=== PATIENT | female | born 1945 | race Caucasian/White ===

== ENCOUNTER 2017-02-26 13:20 | Emergency (ER) | payer MEDICARE, OTHER ==
[~2017-02-26 13:20] MED LIST: ACETAMINOPHEN325 M1 PO; ASPIR 8181 M1 PO; CENTRUM SILVER1 EAC3 PO; CENTRUM SILVER1 TA PO; CEPHALEXIN500 M1 PO; FLAX OIL1000 MG PO; FLAXSEED OIL1000 MG; FLOMAX0.4 MG PO; GLUCOSAMINE & C1 CAP PO; GLUCOSAMINE CH1 EA10 PO; GLUCOSAMINE CH1 EAC2 PO; GLUCOSAMINE/CHO1 TAB; IMODIUM2 MG PO; LIPITOR10 M1 PO; LIPITOR10 MG; LIPITOR10 MG PO; METOPROLOL SUCC25 M1 PO; METOPROLOL TART50 MG PO; METOPXL25 PO; MULTIVITAMIN1 TAB; MULTIVITAMIN1 TAB PO; NORCO 5/325 TAB1 TAB PO; OMEPRAZOLE20 M3 PO; PLAVIX75 M1 PO; PROBIOTIC1 EA10 PO; PROBIOTIC1 EAC4 PO; SKELAXIN800 MG PO; VERAPAMIL HCL PO; VERAPAMIL HCL240 M; ZOFRAN8 MG PO
[2017-02-26] MEDS ORDERED: OMEPRAZOLE20 M3 PO (13:36)
[2017-02-26 14:01] LABS: BASO % 0.5 % (0-2); EOS % 0.8 % (0-7); EOSINOPHIL ABSOLUTE COUNT 0.1 tho/cmm (0.0-0.7); HCT-HEMATOCRIT 40.2 % (34.0-49.0); HGB-HEMOGLOBIN 14.4 gm/dl (12.0-15.5); IMMATURE GRANULOCYTES ABSOLUTE 0.02 tho/cmm (0-0.03); IMMATURE GRANULOCYTES PERCENT 0.2 % (0-0.3); LYMPH % 37.7 % (20-45); LYMPH ABSOLUTE COUNT 3.1 tho/cmm (0.8-4.5); MCH (MEAN CORPUSCULAR HGB) 30.3 pg (28.0-32.0); MCHC MEAN CORPUSCULAR HGB CONC 35.8 % (32.0-36.0); MCV (MEAN CELL VOLUME) 84.5 fl (82.0-96.0); MONO % 6.1 % (0-12); MONOCYTE ABSOLUTE COUNT 0.5 tho/cmm (0.0-1.2); NEUTROPHIL ABSOLUTE COUNT 4.5 tho/cmm (1.6-8.0); NEUTROPHIL-AUTOMATED 4.5 tho/cmm (1.6-8.0); NEUTROPHILS % 54.7 % (40-80); PLATELET COUNT 255 tho/cmm (150-450); RED BLOOD COUNT 4.76 mil/cmm (4.00-5.20); RED CELL DISTRIBUTION WIDTH 12.6 % (12.4-16.4); WHITE BLOOD COUNT 8.3 tho/cmm (4.0-10.0)
[2017-02-26 14:17] LABS: ANION GAP 15 mmol/L (0-20); BLOOD UREA NITROGEN 12 mg/dl (6-24); CALCIUM 8.8 mg/dl (8.5-10.5); CARBON DIOXIDE-VENOUS 23 mmol/L (22-32); CHLORIDE 104 mmol/l (96-110); CREATININE 0.97 mg/dl (0.50-1.10); GLUCOSE 114 mg/dL (70-110); POTASSIUM 3.6 mmol/L (3.7-5.1); SODIUM 138 mmol/L (135-145); eGFR VALUE FOR BLACK 67 mL/Min
[2017-02-26] MEDS ORDERED: MECLIZINE HCL25 M3 PO (16:03)
[2017-02-26] MEDS ORDERED: ZOFRAN4 M2 PO (16:03)
[2017-05-01] MEDS ORDERED: ASPIRIN325 M3 PO (11:32)
== END 2017-02-26 16:40 ==
LOC: EDMED 13:20
PROVIDERS: Emergency Medicine
DX: H81.10 Benign paroxysmal vertigo, unspecified ear (principal); K21.9 Gastro-esophageal reflux disease without esophagitis; Z90.710 Acquired absence of both cervix and uterus
CPT/HCPCS: G8978-GP-CJ; G8979-GP-CI; G8980-GP-CJ